=== PATIENT | male | born 2000 | race Hispanic/Latino ===

== ENCOUNTER 2022-05-28 13:06 | Emergency (ER) | payer MEDICAID ==
[~2022-05-28] VITALS: Ht 177.8 cm; Wt 108.9 kg
[2022-05-28 13:18] VITALS: BP 152/80
[2022-05-28] MEDS ORDERED: IBUP-2070 PO (13:21)
[2022-05-28] MEDS ORDERED: IBUPROFEN 600 MG TABLET PO ONE (13:30)
[2022-05-28] MEDS ORDERED: DEXAMETHASONE 4 MG TAB PO SCH (13:30)
== END 2022-05-28 13:28 | disposition home or self-care (01) ==
LOC: EDH 13:06
DX: T63.461A Toxic effect of venom of wasps, accidental (unintentional), initial encounter (principal); R51.9 Headache, unspecified; I10 Essential (primary) hypertension; Y92.89 Other specified places as the place of occurrence of the external cause
CPT/HCPCS: 99283; J8540

== ENCOUNTER 2022-06-20 12:51 | Emergency (ER) | payer MEDICAID ==
[~2022-06-20] VITALS: Ht 177.8 cm; Wt 111.1 kg
[~2022-06-20 12:51] MED LIST: IBUP-2070 PO
[2022-06-20 12:56] VITALS: BP 158/94
[2022-06-20 13:15] LABS: BASOPHILS % (AUTO) 0.4 % (0.0-5.0); LYMPHOCYTES % (AUTO) 23.2 % (21.0-51.0); MEAN CORPUSCULAR HEMOGLOBIN 29.3 pg (27.0-33.0); MEAN CORPUSCULAR HGB CONC 33.8 g/dL (32.0-36.0); MEAN CORPUSCULAR VOLUME 86.9 fL (80-100); MONOCYTES % (AUTO) 4.8 % (3.0-13.0); NEUTROPHILS % (AUTO) 68.3 % (40.0-77.0); PLATELET COUNT (AUTO) 238 K/uL (130-400); RED BLOOD CELL COUNT(AUTO) 5.18 MIL/uL (4.50-6.20); WHITE BLOOD COUNT (AUTO) 10.2 K/uL (4.8-10.8)
[2022-06-20 13:24] LABS: CREATININE 0.8 mg/dL (0.5-1.5); POTASSIUM 3.7 mmol/L (3.5-5.1)
[2022-06-20 13:28] LABS: ALBUMIN 3.8 g/dL (3.5-5.0); TOTAL PROTEIN, SERUM 7.6 g/dL (6.0-8.3)
[2022-06-20] MEDS ORDERED: IBUP-2070 PO (15:36)
== END 2022-06-20 15:50 | disposition home or self-care (01) ==
LOC: EDH 12:51
DX: R06.02 Shortness of breath (principal); R51.9 Headache, unspecified; R05.9 Cough, unspecified; Z20.822 Contact with and (suspected) exposure to COVID-19
CPT/HCPCS: 99284; 71045; 87635; 80053; 85025; 87804 ×2; 36415; C9803

== ENCOUNTER 2024-12-14 22:46 | Emergency (ER) | payer BC, MEDICAID ==
[~2024-12-14] VITALS: Ht 177.8 cm; Wt 113.4 kg
[2024-12-14 23:14] VITALS: TEMP 98.2
--- NOTE | 2024-12-14 23:25 | ERN ---
General Chief Complaint: Syncope Stated Complaint: SYNCOPE X 2, SORE THROAT, CONGESTION Time Seen by MD: 22:48 Source: patient History of Present Illness Initial Comments Patient is a 24-year-old male who started to get a sore throat approximately three days ago. And then yesterday he noticed vertigo with the room spinning. This episode past and then today he had a 2nd episode of vertigo with the room spinning and had syncope as well. Family members roused him and they called 911. Timing/Duration: 24 hours Severity: moderate Allergies: Coded Allergies: No Known Drug Allergies (Unverified Allergy, Unknown, 05/28/22) Home Meds Active Scripts Ibuprofen (Ibuprofen) 600 Mg Tablet, 600 MG PO Q6H PRN for PAIN, #15 TAB Prov:MARKY VELA 06/20/22 Ibuprofen (Ibuprofen) 600 Mg Tablet, 600 MG PO Q6H PRN for PAIN, #30 TAB Prov:MONA BAILON MD 05/28/22 Past Medical History Past Medical History: Anxiety, High Cholesterol, Hypertension Past Surgical History: None Social History Social History: Negative, Lives with family Constitutional: (-) chills, (-) diaphoresis, (-) fever, (-) malaise, (-) weakness, (-) other documentation EENTM: (-) eye pain, (-) blurred vision, (-) tearing, (-) double vision, (-) ear pain, (-) ear discharge, (-) nose pain, (-) nose congestion, (-) throat pain, (-) Throat swelling, (-) mouth pain, (-) tooth pain, (-) mouth swelling, (-) other documentation Respiratory: (+) cough Cardiovascular: (-) chest pain, (-) edema, (-) palpitations, (-) syncope, (-) dyspnea on exertion, (-) other documentation Gastrointestinal/Abdominal: (-) nausea, (-) vomiting, (-) diarrhea, (-) abdominal pain, (-) abdominal distention, (-) constipation, (-) rectal bleeding, (-) dark stool/melena, (-) other documentation Musculoskeletal: (-) Neck pain, (-) back pain, (-) Flank Pain, (-) joint pain, (-) joint swelling, (-) muscle pain, (-) muscle stiffness, (-) gout, (-) other documentation Skin: (-) laceration, (-) contusion, (-) abrasion, (-) abscess, (-) rash, (-) change in color, (-) change in hair, (-) change in nails, (-) diaphoresis, (-) dryness, (-) other documentation Neuro: (+) syncope, (+) vertigo Psych: (-) depression, (-) suicidal ideation, (-) anxiety, (-) emotional problems, (-) auditory hallucinations, (-) visual hallucinations Physical Exam General Appearance: (+) mild distress Orientation: (+) alert, (+) oriented x 3 Head/Face Trauma: No Eye: bilateral eye normal inspection, bilateral eye PERRL, bilateral eye EOMI Ear, Nose, Throat: (+) hearing grossly normal, (+) normal ENT inspection, (+) moist mucous membraine, (+) normal pharynx, (+) normal TM Ear, Nose, Throat Comment Patient's tympanic membranes clear bilaterally. Patient's cheeks are flushed and warm. Neck: (+) supple, (+) full range of motion, (+) no JVD Respiratory: (+) chest non-tender, (+) lungs clear, (+) well ventilated Heart: (+) regular, (+) no gallop Vascular: (+) no edema, (+) normal peripheral pulse, (+) no JVD Gastrointestinal: (+) soft, (+) non-tender, (+) bowel sound present Back: (+) normal inspection Results Laboratory and Microbiology Lab and Micro Result Laboratory Tests Test 12/14/24 23:15 12/14/24 23:30 White Blood Count 12.5 K/uL (4.8-10.8) H Red Blood Count 5.00 MIL/uL (4.50-6.20) Hemoglobin 14.7 g/dL (14.0-18.0) Hematocrit 44.7 % (42-54) Mean Corpuscular Volume 89.4 fL (79-99) Mean Corpuscular Hemoglobin 29.4 pg (27.0-33.0) Mean Corpuscular Hemoglobin Concent 32.9 g/dL (32.0-36.0) Red Cell Distribution Width 13.2 % (11.0-15.5) Platelet Count 260 K/uL (130-400) Mean Platelet Volume 10.0 fL (7.5-10.5) Immature Granulocyte % (Auto) 0.3 % (0-1) Neutrophils (%) (Auto) 72.4 % (40.0-77.0) Lymphocytes (%) (Auto) 18.9 % (21.0-51.0) L Monocytes (%) (Auto) 5.6 % (3.0-13.0) Eosinophils (%) (Auto) 2.6 % (0.0-8.0) Basophils (%) (Auto) 0.2 % (0.0-5.0) Neutrophils # (Auto) 9.1 K/uL (1.8-7.7) H Lymphocytes # (Auto) 2.4 K/uL (1.0-4.8) Monocytes # (Auto) 0.7 K/uL (0.1-1.0) Eosinophils # (Auto) 0.32 K/uL (0.00-0.70) Basophils # (Auto) 0.03 K/uL (0.00-0.20) Absolute Immature Granulocyte (auto 0.04 K/uL (0-1) Nucleated Red Blood Cells 0.0 % (0.0-0.19) Sodium Level 142 mmol/L (136-145) Potassium Level 3.2 mmol/L (3.5-5.1) L Chloride Level 106 mmol/L (101-111) Carbon Dioxide Level 32 mmol/L (21-32) Blood Urea Nitrogen 15 mg/dL (7-18) Creatinine 1.0 mg/dL (0.5-1.3) Glomerular Filtration Rate Calc 108 mL/min (>90) Random Glucose 98 mg/dL (70-105) Total Calcium 8.9 mg/dL (8.5-10.1) Influenza Type A Antigen Negative For Type A Influenza Type B Antigen Negative For Type B SARS-CoV-2 Antigen (Rapid) PRESUMPTIVE NEGATIVE Group A Streptococcus Rapid negative (NEGATIVE) MDM Patient has an upper respiratory tract infection and associated vertigo and syncope. He has no sinus tenderness and his tympanic membranes are also clear. His right ear is red and flushed as are his bilateral cheeks. It is tempting to think that patient has an upper respiratory tract infection that has now infected his in her ears. I will do throat swabs. I will get a CBC and a chemistry panel. I will also give him some fluid. A slight elevation in his white blood cell count otherwise his cbc is unremarkable. Chemistry panel shows a mild hypokalemia. Throat swabs are negative for COVID strep and influenza. I think the patient does have labyrinthitis from an upper respiratory tract infection I will discharge him from the hospital with a short course of antibiotics to help. He can follow up with his primary care physician. ED Course Orders Procedure Category Date Status Time Basic Metabolic Panel LAB 12/14/24 Complete 23: Cbc With Differential LAB 12/14/24 Complete 23: Covid19 (Sars Antigen LAB 12/14/24 Complete Rapid) 23:25 Influenza Type A & B, LAB 12/14/24 Complete Rapid 23:25 Rapid (Group A Strep) LAB 12/14/24 Complete 23:25 Ketorolac PHA 12/15/24 Complete Tromethamine 15mg/Ml 00:00 Potassium Bicarb/Cit PHA 12/15/24 Complete Ac 25meq (K-Lyte Ta 00:00 Current Medications Medications (Trade) Dose Ordered Sig/Rina Route PRN Reason Start Time Stop Time Status Last Admin Dose Admin Ketorolac Tromethamine (toRADol) 15 mg ONCE ONCE IV 12/15/24 00:00 12/15/24 00:01 DC 12/14/24 23:39 Potassium Bicarbonate (K-Lyte Tablet Eff 25 Meq Tablet.eff) 25 meq ONCE ONCE PO 12/15/24 00:00 12/15/24 00:07 DC Vital Signs Date Time Temp Pulse Resp B/P (MAP) Pulse Ox O2 Delivery O2 Flow Rate FiO2 12/14/24 23:14 98.2 74 16 149/91 97 Room Air* 0 21 12/14/24 22:47 99.0 92 16 134/75 99 Room Air 0 DX & DISP Disposition: Discharge Departure Impression: Primary Impression: URTI (acute upper respiratory infection) Additional Impression: Acute labyrinthitis Condition: Stable Scripts Azithromycin (Azithromycin) 250 Mg Tablet 1 TAB PO AD for 5 Days, #6 TAB 0 Refills 2 the first day followed by 1 for days 2-5 Prov: WILSON PRAKASH MD 12/15/24 Additional Instructions: I expect your upper respiratory tract infection we will resolve in a week. Please return if you find these vertigo episodes incapacitating. Drink plenty of fluids. Follow up with the her primary care physician if symptoms have not resolved with a an a week. Referrals: SELF,REFERRAL (PCP) WILSON PRAKASH MD December 14, 2024 23:25
[2024-12-14 23:37] LABS: BASOPHILS # (AUTO) 0.03 K/uL (0.00-0.20); BASOPHILS % (AUTO) 0.2 % (0.0-5.0); EOSINOPHILS # (AUTO) 0.32 K/uL (0.00-0.70); EOSINOPHILS % (AUTO) 2.6 % (0.0-8.0); HEMATOCRIT 44.7 % (42-54); IMMATURE GRANULOCYTE ABSOLUTE 0.04 K/uL (0-1); LYMPHOCYTES # (AUTO) 2.4 K/uL (1.0-4.8); LYMPHOCYTES % (AUTO) 18.9 % (21.0-51.0); MEAN CORPUSCULAR HEMOGLOBIN 29.4 pg (27.0-33.0); MEAN CORPUSCULAR HGB CONC 32.9 g/dL (32.0-36.0); MEAN CORPUSCULAR VOLUME 89.4 fL (79-99); MONOCYTES # (AUTO) 0.7 K/uL (0.1-1.0); MONOCYTES % (AUTO) 5.6 % (3.0-13.0); NEUTROPHILS # (AUTO) 9.1 K/uL (1.8-7.7); NEUTROPHILS % (AUTO) 72.4 % (40.0-77.0); PLATELET COUNT (AUTO) 260 K/uL (130-400); RED CELL DISTRIBUTION WIDTH 13.2 % (11.0-15.5); WHITE BLOOD COUNT (AUTO) 12.5 K/uL (4.8-10.8)
[2024-12-14] MEDS: ketOROlac 15MG/ML VIAL (15MG/ML) IV ONE (23:39)
[2024-12-14 23:45] LABS: POTASSIUM 3.2 mmol/L (3.5-5.1)
[2024-12-14 23:50] LABS: RAPID GROUP A STREP negative (NEGATIVE)
[2024-12-15] LABS: COVID19 (SARS ANTIGEN RAPID) PRESUMPTIVE NEGATIVE (NEGATIVE); INFLUENZA TYPE A Negative For Type A (NEGATIVE); INFLUENZA TYPE B Negative For Type B (NEGATIVE)
[2024-12-15] MEDS ORDERED: AZIT250T9 PO (00:19)
[2024-12-15] MEDS: PoTASSium BIcarbonate/CIT AC 25 MEQ TABLET.EFF PO ONE (00:25)
[2024-12-15 00:35] VITALS: BP 126/74; PULSE 71; RESP 16; O2SAT 98
== END 2024-12-15 00:38 | disposition home or self-care (01) ==
LOC: EDH 22:46
DX: J06.9 Acute upper respiratory infection, unspecified (principal); H83.09 Labyrinthitis, unspecified ear; E78.00 Pure hypercholesterolemia, unspecified; I10 Essential (primary) hypertension; F41.9 Anxiety disorder, unspecified; Z20.822 Contact with and (suspected) exposure to COVID-19; Z79.899 Other long term (current) drug therapy
CPT/HCPCS: 99284; 96374; 87426; 80048; 85025; 87880; 87804 ×2; 36415; J1885